=== PATIENT | male | born 1955 | race Caucasian/White ===

== ENCOUNTER → 2020-10-08 | Outpatient (CLI) | payer MEDICARE ==
[~2020-10-08] MED LIST: AEC81 PO; ASCO500C18 PO; CALC-960 PO; CHOL100018 PO; COLE625T14 PO; DULA1.5P SQ; EMPA10TA PO; ESOM40CA54 PO; EZET10TA48 PO; FISH1CAP63 PO; GLIM4TAB36 PO; GLUC-148 PO; HYDR25TA PO; IBUP-2733 PO; LUTE20TA PO; METF-446 PO; MULT-1367 PO; OLME40TA18 PO; SERT50TA12 PO
== END | disposition home or self-care (01) ==
LOC: RAH 10:36
PROVIDERS: ATTEND Neurological Surgery
DX: G91.9 Hydrocephalus, unspecified (principal); Z98.890 Other specified postprocedural states
CPT/HCPCS: 70450